=== PATIENT | female | born 1950 | race Caucasian/White ===

== ENCOUNTER 2019-05-08 08:53 | Outpatient (CLI) | payer MEDICARE, SELFPAY ==
--- NOTE | ~2019-05-08 | US_ITS ---
US axilla RT 05/08/2019 09:56 Indication: Right axillary pain Procedure: High-resolution ultrasound of the right axilla Comparison: Mammogram dated 05/08/2019 Findings: There is a normal right axillary lymph node measuring 1.8 cm greatest dimension. No other d iscrete solid or cystic mass. Impression: 1: Normal right axillary lymph node. No sonographic evidence for malignancy. BI-RADS CATEGORY 2 - BENIGN FINDINGS Reviewed, dictated and finalized at location A. ONNEL QUALITY ASSURANCE AUDITOR Impression: 1: Normal right axillary lymph node. No sonographic evidence for malignancy. BI-RADS CATEGORY 2 - BENIGN FINDINGS
--- NOTE | ~2019-05-08 | DEXA_ITS ---
Bone Density Report Name: Janene Cedeno Age: 68 Sex: Female Ethnicity: White Date of : 1950 Indication: osteopenia; height loss; postmenopausal Referring Provider: STONEY, MARIA DEL ROSARIO Study: Bone densitometry was performed. Exam Date: May 08, 2019 Accession number: [id number] Bone Density: Region BMD T-score Z-score Classification AP Spine (L1-L4) 0.942 -1.0 1.0 Normal Femoral Neck (Left) 0.856 0.1 1.7 Normal Total Hip (Left) 1.123 1.5 2.9 Normal Femoral Neck (Right) 0.790 -0.5 1.1 Normal Total Hip (Right) 1.033 0.7 2.1 Normal Total Hip Mean 1.078 1.1 2.5 Normal World Health Organization criteria for BMD impression classify patients as: Normal (T-score at or above -1.0), Osteopenia (T-score between -1.0 and -2.5), or Osteoporosis (T-score at or below -2.5). 10-year Fracture Risk: FRAX not reported because: All T-scores for Spine Total, Hip Total, Femoral Neck at or above -1.0 Previous Exams: Region Exam Age BMD T-score BMD Change BMD Change Date g/cm2 vs Baseline vs Previous AP Spine(L1-L4) 05/08/2019 68 0.942 -1.0 -0.047 0.012 06/04/2016 65 0.930 -1.1 -0.059 -0.059 02/13/2010 59 0.989 -0.5 Total Hip(Left) 05/08/2019 68 1.123 1.5 0.011 0.000 06/04/2016 65 1.123 1.5 0.011 0.011 02/13/2010 59 1.112 1.4 Total Hip(Right) 05/08/2019 68 1.033 0.7 0.073 0.016 06/04/2016 65 1.017 0.6 0.057 0.057 02/13/2010 59 0.959 0.1 *Denotes significance at 95% confidence level, LSC for AP Spine = 0.022 g/cm2, LSC for Total Hip = 0.027 g/cm2 Clinical Information Provided by Patient: Has used the following medications: Vitamin D, Calcium, MTV Patient maximum height was 65.5 Menopause Age: 56 No regular weight bearing exercise Does not regularly consume dairy products Drinks caffeinated beverages Onset of menses at age 16 Number of children 1 Impression: The patient has normal bone mass. No significant bone loss was observed. Discussion: BONE DENSITY IS ABOVE THE MINIMUM DESIRABLE LEVEL AT ALL SKELETAL SITES TESTED. This patient?s bone mineral density is above the minimum desirable level (T-score -1.0 or better) at all sites measured. The patient should follow a healthful lifestyle (good nutrition with adequate calcium and vitamin D, and appropriate weight-bearing exercise). Fol
--- NOTE | ~2019-05-08 | MM_ITS ---
EXAMINATION: MM diagnostic ion BI w luzma HISTORY: Breast pain TECHNIQUE: Additional 3-D tomosynthesis images of the breasts were performed and synthetic 2-D images were generated. CAD analysis was submitted and interpreted. COMPARISON: Comparison to multiple prior studies sequentially, with oldest reviewed study dated 08/2021. FINDINGS: Breast composed of scattered areas of fibroglandular density. There are no suspicious julieth s, calcifications or architectural distortion in either breast to suggest malignancy. IMPRESSION: 1. No mammographic evidence for malignancy. 2. Routine yearly screening mammogram and regular clinical breast examination are recommended. BI-RADS Category 1: Negative Reviewed, dictated and finalized at location A. RAM DIRECTOR CABLE TELEVISION IMPRESSION: 1. No mammographic evidence for malignancy. 2. Routine yearly screening mammogram and regular clinical breast examination a re recommended. BI-RADS Category 1: Negative
== END 2019-05-08 08:54 ==
PROVIDERS: Referring Provider Obstetrics & Gynecology Gynecology; Visit Provider Nurse Practitioner
DX: N64.4 Mastodynia (principal); Z78.0 Asymptomatic menopausal state; M85.88 Other specified disorders of bone density and structure, other site; M79.621 Pain in right upper arm
CPT/HCPCS: 76882; 77062; 77066; 77080; G0279

== ENCOUNTER 2020-02-08 16:08 | Emergency (ER) | payer MEDICARE, SELFPAY ==
--- NOTE | ~2020-02-08 | XR_ITS ---
EXAMINATION: XR abdomen obstructive series DATE: 02/08/2020 17:05 INDICATION: Diarrhea, abdominal distention and cramping. TECHNIQUE: Frontal supine and upright views of the abdomen were obtained. COMPARISON: 11/22/2017 FINDINGS: There is a relatively positive bowel gas with small amount of gas scattered throughout a few nondilat ed loops of large and small bowel. No dilated gas-filled loops of bowel. No free intraperitoneal gas . No suspicious calcifications in the abdomen or pelvis. Mild lumbar levocurvature with moderate spon dylosis. Visualized lung bases are clear. IMPRESSION: 1. No free intraperitoneal gas or dilated gas-filled loops of bowel to suggest obstruction. Reviewed, dictated and finalized at location A. RRER STRIP
[2020-02-08 16:11] VITALS: BP 152/100; PULSE 101; RESP 18; TEMP 36.3; O2SAT 100
--- NOTE | 2020-02-08 16:21 | ED.GENADULT ---
HPI - General Adult General Chief complaint: Nausea/Vomiting/Diarrhea Stated complaint: diarrhea Time Seen by Provider: 02/08/20 16:20 Source: patient Mode of arrival: ambulatory Limitations: no limitations History of Present Illness HPI narrative: 69-year-old female here for evaluation of diarrhea that has persisted for now greater than 2 days. She states that she was awakened every 30 minutes last night with cramping and watery diarrhea, denies any blood or mucus in her stool. She has not had a fever, no vomiting. She states that no one at Thanksgiving dinner was ill. She has a remote history of a bowel obstruction, approximately 30 years ago. She also has had 2 back surgeries 15 to 20 years ago and states since that time she has difficulty holding her urine and stool. She has not taken any antidiarrheals at home. Last normal stool was morning. Diarrhea began Saturday and progressed to water by Saturday evening. Onset (ago): day(s) Location: abdomen Radiation: non-radiation Severity: moderate Pain Consistency: intermittent Treatments prior to arrival: none Related Data Home Medications Medication Instructions Recorded Confirmed levothyroxine 02/08/20 02/08/20 Allergies Allergy/AdvReac Type Severity Reaction Status Date / Time IVP CONTRAST Allergy Severe CHEST Uncoded 02/08/20 16:14 PAIN, DIFF BREATHING SHELL FISH Allergy Severe N/;V Uncoded 02/08/20 16:14 Review of Systems Review of Systems: All systems reviewed & are unremarkable except as noted in HPI and below PMFSH Social History Social History (Updated 02/08/20 @ 16:39 by Oanh Pedersen PA-C) Smoking status: Former smoker Alcohol intake: never Substance use: never Living arrangements: with family 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 Gender identity (if verbalized by the patient): Female Exam Const: General: no acute distress and alert Orientation/consciousness: patient oriented x3 HENMT: Head: normal to inspection Mouth: Yes moist mucous membranes Eyes: Pupils: Equal, round and reactive pupils present Neck: Neck: no lymphadenopathy Resp: Effort & Inspection: normal respiratory effort Auscultation: clear to auscultation bilaterally Cardio: Rate: regular rate and tachycardic (100) Rhythm: regular rhythm GI: Inspection: distended Percussion: Yes dullness to percussion Auscultation: normal bowel sounds (lower quadrants) and Hypoactive bowel sounds present (upper quadrants) : General: Yes no CVA tenderness Skin: General skin exam: normal color Extrem: General: normal to inspection Psych: Mental Status: mental status grossly normal Affect: normal affect Course Course Emergency Course: Pt is feeling better, but has had 2 small bouts of diarrhea. She has been able to urinate. VS are improved. Will treat at home with antidiarrheal and diet. Vital Signs Vital signs: Vital Signs Temperature 36.3 C L 02/08/20 16:11 Pulse Rate 101 H 02/08/20 16:11 Respiratory Rate 18 02/08/20 16:11 Blood Pressure 152/100 H 02/08/20 16:11 Pulse Oximetry 100 02/08/20 16:11 Temperature 36.3 C L 02/08/20 16:11 Pulse Rate 87 02/08/20 19:30 Respiratory Rate 12 02/08/20 19:30 Blood Pressure 141/71 H 02/08/20 19:30 Pulse Oximetry 100 02/08/20 19:30 Medical Decision Making Vital Signs Vital Signs: Vital Signs Temperature 36.3 C L 02/08/20 16:11 Pulse Rate 101 H 02/08/20 16:11 Respiratory Rate 18 02/08/20 16:11 Blood Pressure 152/100 H 02/08/20 16:11 Pulse Oximetry 100 02/08/20 16:11 Temperature 36.3 C L 02/08/20 16:11 Pulse Rate 87 02/08/20 19:30 Respiratory Rate 12 02/08/20 19:30 Blood Pressure 141/71 H 02/08/20 19:30 Pulse Oximetry 100 02/08/20 19:30 Lab Data Result diagrams: 02/08/20 16:23 02/08/20 16:23 Labs: Lab Results 02/08/20 02/08/20 02/08/20 Range/Units 16:23 1
[2020-02-08 16:29] LABS: Basophils Percent Auto 0.2 % (0.2-1.2); Eosinophils Absolute Auto 0.1 K/mm3 (0-0.3); Hematocrit 48.3 % (37.0-47.0); Immature Granulocyte Absolute 0.03 K/mm3 (0.00-0.031); Immature Granulocyte Percent A 0.3 % (0-0.5); Lymphocytes Absolute Auto 1.69 K/mm3 (0.9-3.2); Lymphocytes Percent Auto 17.3 % (18.3-44.2); Mean Corpuscular HGB Conc 33.1 g/dl (32-36); Mean Corpuscular Hemoglobin 31.9 pg (26-34); Mean Corpuscular Volume 96.4 fl (80-100); Mean Platelet Volume 8.9 fl (7.4-10.4); Monocytes Absolute Auto 0.6 K/mm3 (0.1-0.6); Monocytes Percent Auto 6.4 % (2.6-8.5); Neutrophils Absolute Auto 7.3 K/mm3 (1.3-6.7); Neutrophils Percent Auto 74.8 % (45.5-73.1); Platelet Count Result 276 k/mm3 (150-375); Red Blood Count 5.01 M/mm3 (4.2-5.4); Red Cell Distribution Width 13.5 % (11.5-14.5); White Blood Count 9.8 K/mm3 (4.5-10.0)
[2020-02-08] MEDS: SODIUM CHLORIDE 0.9% IV 1,000 ML 999 ML IV CONT (16:38)
[2020-02-08 16:59] LABS: Alanine Aminotransferase 49 U/L (4-35); Albumin Level 4.6 g/dL (3.5-5.1); Alkaline Phosphatase 91 U/L (38-126); Anion Gap 10 mmol/L (8-16); Aspartate Amino Transferase 54 U/L (14-36); Bilirubin,Total 0.6 mg/dL (0.2-1.3); Blood Urea Nitrogen 15 mg/dL (7-17); Calcium 9.5 mg/dL (8.4-10.2); Carbon Dioxide 24 mmol/L (22-30); Chloride 105 mmol/L (98-107); Estimated CRCL calculation 69 ml/min; Estimated Glomerular Filt Rate > 60; Glucose 133 mg/dL (65-105); Lipase 59 U/L (23-300); Potassium 3.8 mmol/L (3.4-5.0); Sodium 139 mmol/L (137-145)
--- NOTE | 2020-02-08 17:00 | PC.NURSE ---
Patient unable to give urine sample at this time, patient declines straight cath.
[2020-02-08 17:22] VITALS: BP 138/76; BP 141/81; PULSE 104; PULSE 95
[2020-02-08 17:24] VITALS: BP 132/88; PULSE 106
[2020-02-08 18:21] VITALS: BP 139/88; PULSE 95; RESP 17; O2SAT 100
[2020-02-08 19:08] LABS: Add Urine Microscopic? NO; Appearance Urine Clear (Clear); Bilirubin Urine Negative (Negative); Blood Urine Negative (Negative); Color Urine Yellow (Yellow); Glucose Urine UA Negative (Negative); Ketones Urine Negative (Negative); Leukocyte Esterase Ur Negative LEU/UL (Negative); Nitrate Urine Negative (Negative); Protein Urine Negative (Negative); Specific Grav Ur 1.026 (1.001-1.035); Urobilinogen Urine Negative mg/dL (<2.0)
[2020-02-08 19:30] VITALS: BP 141/71; PULSE 87; RESP 12; O2SAT 100
--- NOTE | 2020-02-08 19:39 | PC.NURSE ---
pt currently refusing PO Lomotil because pt is stating that Khushi OVALLE told her she was going to get something iv for her c/o diarrhea. This RN checks order again and reassures pt that this is the correct order. Pt continues to refuse to take PO med at this time.
[2020-02-08] MEDS: DIPHENOXYLATE/ATROPINE (*CRX) 2.5 MG TABLET 1 TABLET PO (19:51)
[2020-02-08 20:27] VITALS: BP 149/83; PULSE 94; RESP 20; O2SAT 100
== END 2020-02-08 20:29 | disposition home or self-care (01) ==
PROVIDERS: Emergency Provider Emergency Medicine; PCP Internal Medicine
DX: K52.9 Noninfective gastroenteritis and colitis, unspecified (principal); Z87.891 Personal history of nicotine dependence
CPT/HCPCS: 36415; 74019; 80053; 81003; 83690; 85025; 96360; 96361; 99283; A9270; J7030